=== PATIENT | born 1985 | race Caucasian/White ===

== ENCOUNTER 2024-03-31 14:37 | Outpatient (OUT) | payer BC, SELFPAY ==
--- NOTE | 2024-03-31 14:59 | MR_ITS ---
[facility] [place] [id number] Patient Name: STEW CROWELL MRN: [id number] date: 1985 Sex: U Assigned Patient Location: MRI Current Patient Location: MRI Accession/Order Number: [id number] Exam Date: 03/31/2024 15:04 Report Date: 03/31/2024 16:21 At the request of: JELLY GARCIA Procedure: MR knee LT wo con EXAM: MR knee LT wo con REASON FOR EXAM: acute pain of left knee. TECHNIQUE: Multiplanar, multisequence imaging of the left knee was performed without contrast COMPARISON: None. FINDINGS: Laterally, the iliotibial band, fibular collateral ligament, popliteus tendon and biceps tendon are intact. The ACL is intact. The lateral meniscus demonstrates grossly normal morphology and signal without tear. The lateral articular cartilage demonstrates low-grade chondrosis. Medially, the medial collateral ligament is intact. The PCL is intact. The medial meniscus demonstrates grossly normal morphology and signal without tear. Low-grade chondrosis of the medial compartment. The extensor mechanism is intact. Low-grade chondrosis of the patellofemoral cartilage. The bone marrow signal is without fracture. No joint effusion. The regional musculature is without muscle strain or tendon tear. MR/MR knee LT wo con IMPRESSION: 1. Tricompartmental low-grade chondrosis. 2. Intact menisci, cruciate and collateral ligaments. Electronically authenticated by: FRANCO NEGRO Date: 03/31/2024 16:21
== END 2024-03-31 14:38 | disposition home or self-care (01) ==
LOC: MRI 14:38
PROVIDERS: Visit Provider Nurse Practitioner
DX: M25.562 Pain in left knee (principal)
CPT/HCPCS: 73721

== ENCOUNTER 2025-05-17 07:23 | Outpatient (OUT) | payer BC, SELFPAY ==
--- OUTSIDE RECORDS SUMMARY | 2024-09-28 10:31 | XMS_ITS | Continuity of Care Document ---
Author Organization [facility] Address [address] [place] [address] Phone Care Team Providers Care Industrial Electrician Journeyman Name Role Phone Huey Walker Unavailable Unavailable Procedures Procedure Date ROUTINE VENIPUNCTURE IMMUNIZATION ADMIN TDAP VACCINE >7 IM TB INTRADERMAL TEST TB INTRADERMAL TEST TB INTRADERMAL TEST TB INTRADERMAL TEST OFFICE/OUTPATIENT VISIT, EST URINE TEST [facility] MEDICAID [facility] SPECIMEN HANDLING (GC/CHLAMYDIA) Aug URINE TEST OFFICE/OUTPATIENT VISIT, EST URINE TEST TB INTRADERMAL TEST TB INTRADERMAL TEST OFFICE/OUTPATIENT VISIT, EST URINE TEST Advance Directives Directive Yes / No Effective Date File Name No Information Encounters Encounter Description Practice Location Reason(s) For Visit Diagnoses Date Provider Providers Copied on Encounter [facility], [address], [place], [id number] , [place] tel:[phone] [facility] Lab draw (chief complaint) Encounter for screening for other viral diseasesEncounter for antibody response examinationEncounter for screening for respiratory tuberculosis Zuri Gaitan. [address], [place], [id number] , [place]. tel: [phone] [facility], [address], [place], [id number] , [place] tel: [phone] [facility] No Information 3 Visci DO Huey. [address], [place], [id number] , [place]. tel: [phone] [facility], [address], [place], [id number] , [place] tel: [phone] [facility] Screening examination for pulmonary tuberculosis 2 Visci DO Huey. [address], [place], [id number] , [place]. tel: [phone] OFFICE/OUTPA TIENT VISIT, [facility], [address], [place], [id number] , [place] tel: [phone] [facility] No Information 2 Visci DO Huey. [address], [place], [id number] , [place]. tel: [phone] [facility], [address], [place], [id number] , [place] tel: [phone] [facility] No Information 2 Lamp Leslie. [address], [place], [id number] , [place]. tel: [phone] OFFICE/OUTPA TIENT VISIT, [facility], [address], [place], [id number] , [place] tel: [phone] [facility] No Information 1 Visci DO Huey. [address], [place], [id number] , [place]. tel: [phone] [facility], [address], [place], [address] , [place] tel: [phone] [facility] No Information 1 Visci DO Huey. [address], [place], [address] , [place]. tel: [phone] [facility], [address], [place], [address] , [place] tel: [phone] [facility] No Information 7 1 Zuri Gaitan. [address], [place], [address] , [place]. tel: [phone] OFFICE/OUTPA TIENT VISIT, EST [facility], [address], [place], [id number] , [place] tel: [phone] [facility] No Information Mar-0 [phone] Zuri Gaitan. [address], [place], [id number] , [place]. tel: [phone] Family History Family Member Type Diagnosis Age At Onset No Information Immunizations Vaccine Date Status Comments Tdap (Boostrix) administered Source: New Immunization Record Influenza, MDCK, trivalent, PF administer ed Source: Other Registry Influenza, split virus, quadrivalent, PF administered Source: Other Regist ry influenza, unspecified formulation administered Source: Other Regist ry tetanus toxoid, adsorbed administered [place]et[place] rce: Other Registry Hep B, adolescent or pediatric administer ed Source: Other Registry MMR administered Source: Other R egistry OPV administered Source: Other R egistry Hib, unspecified formulation administered Source: Other Registry DTP administered Source: Other R egistry DTP administered Source: Other R egistry OPV administered Source: Other R egistry MMR administered Source: Other R egistry DTP administered Source: Other R egistry OPV administered Source: Other R egistry DTP administered Source: Other R egistry Payers Payer name Insurance type Covered alliance party ID Authoriza tion(s) Self Pay Cap [id number] Social History Type Description Quantity Date Captured Comments Alcohol Use Details Unknown Caffeine Use Details Unknown Tobacco Use Status No Information Smoking Status No Information Sex Female Sexual Orientation Straight or heterosexual Oct Gender Identity Female Chief Complaint And Reason For Visit From encounter dated 09/28/2024 14:31'. Lab draw (chief complaint). Description: Labs drawn x1 RAC. 2x2 and bandage applied. Pt tolerated well. EDD Johnson Reason For Referral Reason For Referral No Information Plan Of Treatment Date Type Action Status Goal Hep A. Due on du e Goal Tdap Vaccine. Due on 2024 due Goal Tdap. Due on due Goal PRAPARE ASSESSMENT. Due on due Goal RLP. Due on due Goal Unhealthy drug use screening . Due on due Goal Influenza vaccine. Due on due Goal Depression screening. Due on due Goal Hepatitis C screening. Due o n due Goal HPV. Due on due History Of Present Illness Encounter Date Complaint History Of Prese nt Illness Lab draw Labs drawn x1 RA C. 2x2 and bandage applied. Pt tolerated well. EDD Johnson Functional Status Date Functional Assessmen t No Information Instructions Date Instruction Additional Infor mation No Information Assessments Type Assessment Date assessment Encounter for screening for othe r viral diseases assessment Encounter for antibody response examination assessment Encounter for screening for resp iratory tuberculosis Patient Care Teams Name Effective Dates (start - stop) Status Members No Information
--- OUTSIDE RECORDS SUMMARY | 2025-05-17 07:27 | XMS_ITS | Patient Health Record ---
Author Organization [facility] Address [address] [place] [address] Care Team Providers Care Director Of Procurement Name Role Phone Jeremy Mckeon Unavailable [phone] Reason For Referral No Information Social History Tobacco Use: Social History Observation Description Date Details (start date - stop date) Never Smoker NA - NA Smoking History Question Answer Notes Smoking Status NonSmoker AUDIT-C (Standard) Question Answer Notes Did you have a drink containing alcohol in the p ast year? Yes How often did you have six or more drinks on one occasion in the past year?Never (0 point)How many drinks did you have on a typical day when you were drinking in the past year?1 or 2 drinks (0 point)How often did you have a drink containing alcohol in the past year?2 to 4 times a month (2 points) Problems Problem Type SNOMED Code ICD Code Onset Dates Problem Status W/U Status Risk Notes Problem 2407358875 Acute pain of left knee (M25 .562) ActiveconfirmedProblemAcute pain of right knee (M25.561)Activeconfirmed Plan Of Treatment Pending Test Test Name Order Date MRI : Knee W/O Contrast Left - 38001 SCC- KNEE 4 VIEW LEFT-38297 03/11/2024 Insurance Providers Payer Name Payer Address Payer Phone Subscriber Number Group Number Insured Name Patient Relationship to Insured Coverage Start Date Coverage End Date Nando PAUL [address] [place] [address] [id number] STEW CROWELL Self - patient is the insured Medical (General) History Medical History History ICD Code CPAP Machine:: No GI Problems: : YesHealthcare worker: YesLatex Allergy: NoHave you been in close contact with someone who has had MRSA within the last year?: NoHave you ever had or presently have MRSA?: NoHave you been seen by a dentist in the last year?: YesDo you have any dental problems i.e. Broken, loose, or chipped teeth, absess, gum disease?: No
--- OUTSIDE RECORDS SUMMARY | 2025-05-17 07:27 | XMS_ITS | Clinical Summary ---
Author Organization [facility] Address [address] [place] [address] Care Team Providers Care Process Owner Name Role Phone Unavailable Primary Care Provider Unavailabl e Social History Tobacco UseTypesPacks/DayYears UsedDateSmoking Tobacco: Never Assessed CommentsUnknownSex and Gender InformationValueDate RecordedSex Assigned at Not on fileLegal XjhIywvcc40/01/2023 8:32 PM EDTGender IdentityNot on fileSexual OrientationNot on file Last Filed Vital Signs Vital SignReadingTime TakenCommentsBlood Mnsmvmph418/7407 12:00 PM EDT Pulse--Temperature--Respiratory Rate--Oxygen Saturation--Inhaled Oxygen Concentration--Unsegs03.6 kg (127 lb)04/15/2019 12:00 PM UYHBzzhzs243.6 cm (5' 4 )04/15/2019 12:00 PM EDTBody Mass Index21.809 12:00 PM EDT Plan of Treatment Not on file
--- OUTSIDE RECORDS SUMMARY | 2025-05-17 07:27 | XMS_ITS | Clinical Summary ---
Author Organization [facility] Address [address] [place] [address] Phone Care Team Providers Care Burnisher Name Role Phone Nate Doherty DO Primary Care Provider Mary Padilla Unavailable Allergies No known active allergies Medications MedicationSigDispense QuantityRefillsLast FilledStart DateEnd DateStatus imiquimod (Aldara) 5 % cream Indications:Condylomata acuminata in femaleApply at at bedtime to affected vulvar areas 3 x a week, wash off 8 hours later 12 packet 4Active Encounters DateTypeDepartmentCare ZxbkZjitloatfhp94/03/2025Patient Risk Score ACO Care Management [address] [facility] [address] [place] [address] 03/25/2025Patient Risk Score [facility] [facility] [address] [place] [address] 02/22/2025Patient Risk Score ACO Care Management [address] [facility] [address] [place] [address] from Last 3 Months Social History Tobacco UseTypesPacks/DayYears UsedDateSmoking Tobacco: NeverSmokeless Tobacco: Never Tobacco Cessation:Counseling Given: Not Answered PHQ-2AnswerDate RecordedPatient Health Questionnaire-2 Zglda0754 CommentsNoSex and Gender InformationValueDate RecordedSex Assigned at Mcgjnu6508/10/2023 6:08 PM ESTLegal PjhMkdbaq42/25/2022 3:34 PM ESTGender Identity Zarkfx1908/10/2023 6:08 PM ESTSexual OrientationNot on file Last Filed Vital Signs Vital SignReadingTime TakenCommentsBlood Lxnjzvwp773/6909 3:41 PM EDT Gdbnx186308/16/2022 3:16 PM ESTTemperature--Respiratory Afki136709/21/2022 11:47 AM ESTOxygen Saturation--Inhaled Oxygen Concentration--Mtqasm67.4 kg (146 lb 6.4 oz)04/06/2024 3:41 PM TIKWdajci068.6 cm (5' 4 )09/30/2023 4:02 PM EDTBody Mass Index25.13009/30/2023 4:02 PM EDT Plan of Treatment Health MaintenanceDue DateLast DoneCommentsHIV Ajclmhtfj59/06/1988Lipid Panel 1987IPV Vaccines (4 of 4 - 4-dose series), 03/06/1989, 11/14/1988DTaP/Tdap/Td Vaccines (5 - Tdap), 08/13/1989, 03/06/1989, Additional history existsHepatitis C Izqgkokvm70/06/2006Hepatitis B Vaccines (2 of 3 - 19+ 3-dose series)HPV Vaccines (1 - Risk 3-dose Standard series)09/24/2014Yearly Adult Wahqftzu19/12/356579/05/2024, 10/06/2021Influenza Vaccine (#1)/, 05/20/2019, 04/21/2017 COVID-19 Vaccine ( - season)2025Diabetes Nlwzhkfdx55/26/2026 3Pap Smear/ervical Cancer Flcqxzope95/11/2029 HPV/Docmpq59Zoster Vaccines (1 of 2)09/24/2037HIB Vaccines Mszchnhcf48/25/1991MMR SevjjcmmGzhizohwv98/25/2000, 03/06/1989Irritable Bowel MfnfqepfWjnyohmsgulm29/16/2023Hepatitis A VaccinesAged OutNo longer eligible based on patient's age to complete this topicMeningococcal VaccineAged OutNo longer eligible based on patient's age to complete this topicPneumococcal Vaccine: Pediatrics and At-Risk Adult PatientsAged OutNo longer eligible based on patient's age to complete this topicRotavirus VaccinesAged OutNo longer eligible based on patient's age to complete this topic Procedures Procedure NamePriorityDate/TimeAssociated DiagnosisCommentsHPV DNA HIGH RISK WITH XLQBRXAMUixerew89/11/2024 4:25 PM EDT Screening for cervical cancer GYNECOLOGIC CYTOLOGY ZCYMGQHKGXXKQcitbkd81/11/2024 4:25 PM EDT Screening for cervical cancer SSARYNDYKLRFdkjumx89/16/2023 10:00 AM EST COMPREHENSIVE METABOLIC PKSVTBuviaux53/26/2023 3:44 PM EST from Last 3 Months or Most Recently Relevant to Health Maintenance Results * THINPREP PAP TEST (09/30/2023 4:25 PM EDT)ComponentValueRef RangeTest Method Analysis TimePerformed AtPathologist SignatureCase ReportGynecologic Cytology ?Case: [id number] ? Authorizing Provider: ??ABEBE Mas Collected: ? 09/30/20235 ? Ordering Location: ? [facility] ? Received: ?09/30/20231624 ? First Screen: ?Jazmín Villagomez, CT ? Specimen: ?ThinPrep Liquid-Based Pap-Imaging System Screen, CERVIX, SCREENING ? 10/10/2023 2:31 PM [facility] Interpretation A. THINPREP PAP CERVIX, SCREENING - Specimen Adequacy Satisfactory for evaluation; endocervical/transformation zone component is present General Categorization Negative for intraepithelial lesion or malignancy. Descriptive Interpretation Negative for intraepithelial lesion or malignancy 10/10/2023 2:31 PM [facility] at 1431 EDTSlide(s) initially screened by CRISTIAN Law at [facility] [address] [address] By the signature on this report, the individual or group listed as making the Final Interpretation/Diagnosis certifies that they have reviewed this case. 10/10/2023 2:31 PM [facility] LABThinPrep Imaging SystemThis specimen has been analyzed by the ThinPrep Imaging System ([employer] an automated imaging and review system, which assists the laboratory in evaluating cells on ThinPrep Pap tests. Following automated imaging, selected clemente from every slide were reviewed by a finisher operator and/or pathologist. 10/10/2023 2:31 PM [facility] LABEducational NoteCervical cytology is a screening procedure primarily for squamous cancers and precursors and has associated false-negative and false-positives results as evidenced by published data. Your patient's test should be interpreted in this context, together with the patient's history and clinical findings. Regular sampling and follow-up of unexplained clinical signs and symptoms are recommended to minimize false negative results.10/10/2023 2:31 PM [facility] LABPerform HPV HR test?Always (all interpretations)10/10/2023 2:31 PM [facility] LABInclude HPV Genotype?Yes 10/10/2023 2:31 PM [facility] LABSpecimen (Source)Anatomical Location / Laterality Collection Method / VolumeCollection TimeReceived TimeThinPrepCervix uteri structure / UnknownNon-blood Collection / Gfbuiyn0709/30/2023 4:25 PM EDT 09/30/2023 4:25 PM EDT Narrative Authorizing ProviderResult TypeResult StatusHernansimi Alicia Valerie BRYSONN-CNMLAB CYTOLOGY ORDERABLESFinal ResultPerforming OrganizationAddressCity/State/ZIP Code Phone Number [facility] [address] [place], [place] [phone] [facility] [address] Former[facility] [address] [place] [address] * HPV DNA High Risk With Genotype (09/30/2023 4:25 PM EDT)ComponentValueRef RangeTest MethodAnalysis TimePerformed AtPathologist SignatureHPV, high-risk MkevevkoOefdiido69/21/2024 2:31 PM EDT[facility] LABHPV Type 16 DNANegativeNegative 10/10/2023 2:31 PM EDT[facility] LABHPV Type 18 RBMUzijyerkBzephqks37/21/2024 2:31 PM EDT[facility] LABHPV non-Type 16 or 18 SOJCohiyheeCtydfdmo38/21/2024 2:31 PM EDT [facility] LABSpecimen (Source)Anatomical Location / LateralityCollection Method / VolumeCollection TimeReceived TimeThinPrepCervix uteri structure / UnknownNon- blood Collection / Sydbfqp9509/30/2023 4:25 PM EDT10/01/2023 10:54 AM EDT Narrative [facility] - 10/10/2023 2:31 PM EDT Testing for high-risk (HR) types of human papilloma virus (HPV) is performed by the Shreyas rufino HPV Test. The rufino HPV Test is a qualitative polymerase chain reaction that amplifies DNA of HPV16, HPV18, and 12 other high-risk HPV types (31, 33, 35, 39, 45, 51, 52, 56, 58, 59, 66, and 68) associated with cervical cancer and its precursor lesions. A positive result indicates the presence of HPV DNA due to one or more of the 14 genotypes: 16, 18, 31, 33, 35, 39, 45, 51, 52, 56, 58, 59, 66, and 68. Negative results indicates HPV DNA concentrations are undectectable or below the pre-set threshold for detection. False negative results may be associated with unoptimized sampling. A negative HR HPV result does not exclude the possibility of future cytologic HSIL or underlying CIN2-3 or cancer. This test is approved by the US Food and Drug Administration. Results of this test should be interpreted in conjunction with the patient Pap test results. Please refer to ASCCP current quidelines forthe use of HPV DNA testing, result interpretation, and patient management. The performance of this test was verified by the Molecular Diagnostic Laboratory at [facility]. The lab is certified under the Clinical Laboratory Amendments of 1988 (CLIA 88) as qualified to perform high complexity clinical laboratory testing. PERFORMING LAB LOCATIONS [facility]: [address] [place] [address] Authorizing ProviderResult TypeResult StatusMicsunni Padilla APRN-CNMLAB MOLECULAR DIAGNOSTICS ORDERABLESFinal ResultPerforming OrganizationAddress City/State/ZIP CodePhone Number [facility] [address] [place] [address] * Colonoscopy (09/06/2022 10:00 AM EST)Anatomical RegionLateralityModality EndoscopySpecimen (Source)Anatomical Location / LateralityCollection Method / VolumeCollection TimeReceived Time09/06/2022 10:00 AM EST Narrative 01/04/2023 10:54 PM EDT Patient Name: Clau Murray Procedure Date: 09/06/2022 10:00 AM Date of : 1985 Admit Type: Outpatient Site: [facility] Room 2 Ethnicity: Not or Race: White Attending MD: Greg Reich DO, [id number] Procedure: ? Colonoscopy Indications: ? Abdominal pain, Diarrhea, Rectal bleeding Patient Profile: ? This is a 36 year old female. Refer to note in patient ? chart for documentation of history and physical. Providers: ? Greg Reich DO (Doctor)Suzie RN ? (Nurse), Jesica Live, Tech Referring: ? Caitlin Saha NP Medicines: ? Monitored Anesthesia Care. Complications: ? No immediate complications. Procedure: ? Pre-Anesthesia Assessment: ? - Prior to the procedure, a History and Physical was ? performed, and patient medications and allergies were ? reviewed. The patient's tolerance of previous ? anesthesia was also reviewed. The risks and benefits ? of the procedure and the sedation options and risks ? were discussed with the patient. All questions were ? answered, and informed consent was obtained. Prior ? Anticoagulants: The patient has taken no anticoagulant ? or antiplatelet agents. ASA Grade Assessment: II - A ? patient with mild systemic disease. After reviewing ? the risks and benefits, the patient was deemed in ? satisfactory condition to undergo the procedure. ? After I obtained informed consent, the scope was ? passed under direct vision. Throughout the procedure, ? the patient's blood pressure, pulse, and oxygen ? saturations were monitored continuously.The ? colonoscopy was performed without difficulty. The ? patient tolerated the procedure well. The quality of ? the bowel preparation was good. The terminal ileum, ? ileocecal valve, appendiceal orifice, and rectum were ? photographed. The pediatric colonoscope was introduced ? through the anus and advanced to the terminal ileum, ? with identification of the appendiceal orifice and IC ? valve. Findings: ? The terminal ileum appeared normal. ? The entire examined colon appeared normal on direct and retroflexion ? views. Biopsies for histology were taken with a cold forceps from the ? right transverse colon and left transverse colon for evaluation of ? microscopic colitis. The pathology specimen was placed into Bottle A. Estimated Blood Loss: ? None. Impression: ?- The examined portion of the ileum was normal. ? - The entire examined colon is normal on direct and ? retroflexion views. Biopsied. Recommendation: ?- Discharge patient to home. ? - Resume previous diet. ? - Continue present medications. ? - Await pathology results. ? - Repeat colonoscopy in 10 years for screening ? purposes. ? - Return to referring physician as previously ? scheduled. ? - Patient has a contact number available for ? emergencies. The signs and symptoms of potential ? delayed complications were discussed with the patient. ? Return to normal activities tomorrow. Written ? discharge instructions were provided to the patient. Procedure Code(s): ? --- Professional --- ? 82466, Colonoscopy, flexible; with biopsy, single or ? multiple Diagnosis Code(s): ? --- Professional --- ? R10.9, Unspecified abdominal pain ? R19.7, Diarrhea, unspecified ? K62.5, Hemorrhage of anus and rectum CPT copyright 2021 [employer]. All rights reserved. The codes documented in this report are preliminary and upon naval aircrewman review may be revised to meet current compliance requirements. Attending Participation: ? I personally performed the entire procedure. DO Greg Meyer DO 09/06/2022 10:53:45 AM This report has been signed electronically. Number of Addenda: 0 Note Initiated On: 09/06/2022 10:00 AM Scope Withdrawal Time 0 hours 9 minutes 27 seconds Total Procedure Duration Time 0 hours 19 minutes 36 seconds Procedure Note Greg Reich DO - 06/16/2024 Patient Name: Clau Murray Procedure Date: 09/06/2022 10:00 AM Date of : 1985 Admit Type: Outpatient Site: [facility] Room 2 Ethnicity: Not or Race: White Attending MD: Greg Reich DO, [id number] Procedure: Colonoscopy Indications: Abdominal pain, Diarrhea, Rectal bleeding Patient Profile: This is a 36 year old female. Refer to note inpatient chart for documentation of history and physical. Providers: Greg Reich DO (Doctor), Suzie Marin RN (Nurse), Destinee Calderon Referring: Caitlin Saha NP Medicines: Monitored Anesthesia Care. Complications: No immediate complications. Procedure: Pre-Anesthesia Assessment: - Prior to the procedure, a History and Physicalwas performed, and patient medications and allergieswere reviewed. The patient's tolerance of previous anesthesia was also reviewed. The risks andbenefits of the procedure and the sedation options and risks were discussed with the patient. All questions were answered, and informed consent was obtained. Prior Anticoagulants: The patient has taken noanticoagulant or antiplatelet agents. ASA Grade Assessment: II -A patient with mild systemic disease. After reviewing the risks and benefits, the patient was deemed in satisfactory condition to undergo the procedure. After I obtained informed consent, the scope was passed under direct vision. Throughout theprocedure, the patient's blood pressure, pulse, and oxygen saturations were monitored continuously.The colonoscopy was performed without difficulty. The patient tolerated the procedure well. The qualityof the bowel preparation was good. The terminal ileum, ileocecal valve, appendiceal orifice, and rectumwere photographed. The pediatric colonoscope wasintroduced through the anus and advanced to the terminalileum, with identification of the appendiceal orifice andIC valve. Findings: The terminal ileum appeared normal. The entire examined colon appeared normal on direct and retroflexion views. Biopsies for histology were taken with a cold forceps from the right transverse colon and left transverse colon for evaluation of microscopic colitis. The pathology specimen was placed into BottleA. Estimated Blood Loss: None. Impression: - The examined portion of the ileum was normal. - The entire examined colon is normal on direct and retroflexion views. Biopsied. Recommendation: - Discharge patient to home. - Resume previous diet. - Continue present medications. - Await pathology results. - Repeat colonoscopy in 10 years for screening purposes. - Return to referring physician as previously scheduled. - Patient has a contact number available for emergencies. The signs and symptoms of potential delayed complications were discussed with thepatient. Return to normal activities tomorrow. Written discharge instructions were provided to thepatient. Procedure Code(s): --- Professional --- 03252, Colonoscopy, flexible; with biopsy, singleor multiple Diagnosis Code(s): --- Professional --- R10.9, Unspecified abdominal pain R19.7, Diarrhea, unspecified K62.5, Hemorrhage of anus and rectum CPT copyright 2021 [employer]. All rights reserved. The codes documented in this report are preliminary and upon naval aircrewman reviewmay be revised to meet current compliance requirements. Attending Participation: I personally performed the entire procedure. DO Greg Meyer DO 09/06/2022 10:53:45 AM This report has been signed electronically. Number of Addenda: 0 Note Initiated On: 09/06/2022 10:00 AM Scope Withdrawal Time 0 hours 9 minutes 27 seconds Total Procedure Duration Time 0 hours 19 minutes 36 seconds Authorizing ProviderResult TypeResult StatusMattanisha Doherty DOENDOSCOPY PROCEDURE ORDERABLESEdited Result - Final * (ABNORMAL) Comprehensive Metabolic Panel (08/16/2022 3:44 PM EST)Component ValueRef RangeTest MethodAnalysis TimePerformed AtPathologist SignatureGlucose 68(L)74 - 99 mg/dL[facility] CSBIxupah597912 - 145 mmol/[facility] LABPotassium4.43.5 - 5.3 mmol/[facility] LAB Runupqzi16998 - 107 mmol/[facility] UFRGqawiifpwgh3954 - 32 mmol/L [facility] LABAnion Zkn1166 - 20 mmol/[facility] Urea Buvfswxk90 - 23 mg/dLME[facility] LABCreatinine0.570.50 - 1.05 mg/dLMEASE COUN[facility] LABGFR Female>90>90 mL/min/1.19o1PHFKCZMEASE COUNTRYSIDE HOSPITAL LABComment: CALCULATIONS OF ESTIMATED GFR ARE PERFORMED USING THE 2020 CKD-EPI STUDY REFIT EQUATION WITHOUT THE RACE VARIABLE FOR THE IDMS-TRACEABLE CREATININE METHODS. https://jasn.asnjournals.org/content//ASN.9288261760 Calcium9.48.6 - 10.3 mg/dLMEASE [facility]IDE [facility] LABAlbumin4.73.4 - 5.0 g/dL [facility] LABAlkaline Rhnvmjsullu59(L)33 - 110 U/[facility] LABTotal Protein7.36.4 - 8.2 g/dLMEASE [facility] JWLDGO454 - 39 U/L [facility] LABTotal Bilirubin2.4(H)0.0 - 1.2 mg/dLMEASE [facility] LABALT (SGPT)77 - 45 U/[facility] LABComment: Patients treated with Sulfasalazine may generate falsely decreased results for ALT. Specimen (Source)Anatomical Location / LateralityCollection Method / Volume Collection TimeReceived Time08/16/2022 3:44 PM EST08/16/2022 5:06 PM EST Narrative Authorizing ProviderResult TypeResult StatusNicole Derrick Rasheed RN ALLERGY-CNPLAB BLOOD ORDERABLESFinal ResultPerforming OrganizationAddressCity/State/ZIP CodePhone Number [facility] [address] [place] [address] from Last 3 Months or Most Recently Relevant to Health Maintenance Insurance * Guarantor: Destin Murray TypeRelation to PatientDate of BirthPhone Billing AddressPersonal/OvniqxTven97/[birth year][address] [address] Care Teams Team MemberRelationshipSpecialtyStart DateEnd Date Nate Doherty DO [address] [facility] - Urgent Care [facility] [address] [place] [address] PCP - General08/16/22 Mary Padilla APRN-EJSSE [address] [place] [address] PCP - Nando COURTNEY PCP09/19/24
[2025-05-17 08:07] LABS: Alanine Aminotransferase 12 U/L (14-63); Albumin Globulin Ratio 1.4; Albumin Level 3.9 g/dL (3.4-5.0); Alkaline Phosphatase 33 U/L (46-116); Anion Gap 12.7; Aspartate Amino Transferase 11 U/L (15-37); Blood Urea Nitrogen 12.0 mg/dL (7.0-18.0); Calcium 8.9 mg/dL (8.5-10.1); Carbon Dioxide 29.7 mmol/L (21.0-32.0); Chloride 104 mmol/L (98-107); Cholesterol 149 mg/dL (<=200); Estimated GFR (African America >60 (>=60 mL/min/1.73m^2); Estimated GFR (Non-African Ame >60 (>=60 mL/min/1.73m^2); Globulin 2.8 g/dL; Glucose 93 mg/dL (74-106); HDL Cholesterol 71 mg/dL (40-60); Potassium 4.4 mmol/L (3.5-5.1); Sodium 142 mmol/L (136-145); Total Protein 6.7 g/dL (6.4-8.2); Triglycerides 45 mg/dL (<=150); VLDL CHOLESTEROL 9.0 mg/dL
[2025-05-17 08:09] LABS: Hematocrit 38.0 % (36.0-54.0); Hemoglobin 14.3 g/dL (12.0-18.0); Immature Granulocytes Abs Auto 0.03 10^3/uL (0.00-0.03); Immature Granulocytes Pct Auto 0.4 % (0.0-0.5); Lymphocytes Absolute Auto 1.6 10^3/uL (1.2-3.8); Mean Corpuscular HGB Conc 37.6 g/dL (29.9-35.2); Mean Corpuscular Hemoglobin 37.0 pg (25.9-34.0); Mean Corpuscular Volume 98.4 fL (80.0-99.0); Platelet Count 217 10^3/uL (150-450); Red Blood Count 3.86 10^6/uL (4.20-6.10); White Blood Count 7.3 10^3/uL (4.0-11.0)
== END 2025-05-17 07:24 | disposition home or self-care (01) ==
PROVIDERS: Visit Provider Family Medicine
DX: Z00.00 Encounter for general adult medical examination without abnormal findings (principal)
CPT/HCPCS: 36415; 80053; 80061; 85025